=== PATIENT | female | born 1945 | race Caucasian/White ===

== ENCOUNTER 2019-08-17 07:05 | Day surgery (SDC) | payer MEDICARE, OTHER ==
[~2019-08-17] VITALS: Ht 160 cm; Wt 99.8 kg
[~2019-08-17 07:05] MED LIST: CELEXA20 MG PO; HYZAAR 100-251 EACH PO
[2019-08-17] MEDS ORDERED: COZAAR50 MG PO (07:26)
--- NOTE | 2019-08-18 22:00 | OR ---
[facility] [address], [place] [address] Signed DATE OF OPERATION: 08/17/2019 SURGEON: Santo Conroy MD PREOPERATIVE DIAGNOSES: Positive Cologuard test, no clinical symptoms, negative family history of colon cancer. POSTOPERATIVE DIAGNOSES: 1. Diverticulosis, extensive sigmoid and left colon. 2. Polyps x3. PROCEDURE: Total colonoscopy to cecum with cold snare polypectomy x3. ANESTHESIA: Intravenous sedation fentanyl 100 mcg, Versed 7 mg. INDICATION: This 74-year-old white woman is a patient of Dr. Zuniga and has undergone a Cologuard test on June 19, 2019, which was positive. She has no symptoms of bleeding diarrhea or constipation, and no family history of colon cancer. She is admitted at this time to undergo colonoscopy on the basis of the Cologuard test. She understands the risks of bleeding, infection, and perforation. FINDINGS: The prep was excellent. Complete colonoscopy was undertaken to the cecum without question. She had numerous diverticula of the sigmoid and left colon. There were 3 polyps of the left colon in aggregate that were all excised with cold snare technique without problem. None appeared worrisome for malignancy. DESCRIPTION OF PROCEDURE: The patient was brought to the endoscopy suite and placed in lateral decubitus position. Given intravenous sedation to the point of slurred speech and nystagmus. Digital rectal examination was normal. An Olympus video colonoscope was passed in the rectum and manipulated throughout the colon noting diverticular change of the sigmoid and left colon. Scope was ultimately advanced to the cecum, which was well identified. Irrigation was undertaken identifying the ileocecal valve and appendiceal orifice. The scope was withdrawn from that point and examination throughout showed no sign of abnormality until approximately 50 cm from Electronically Signed By: SANTO CONROY MD 08/18/19 2200 PATIENT NAME: SANDRITA MUÑOZ OPERATIVE REPORT DATE OF : 49 REPORT #: [id number] PHYSICIAN: SANTO CONROY MD PCP: FEDERICO ZUNIGA MD REPORT IS CONFIDENTIAL AND NOT TO BE RELEASED WITHOUT AUTHORIZATION [facility] [address], [place] [address] Signed the anal verge where a small polyp was noted. Narrow band imaging confirmed this as well. This was excised with cold snare technique and an additional excision with morcellation technique. Specimen was passed for pathology. Scope was withdrawn and another similar such polyp was noted at 35 cm, that too was similarly excised and retrieved. Ultimately, a small polyp of a similar nature was noted at 25 cm and excised completely with cold snare technique. Careful withdrawal of scope and retroflexed view in the rectum showed no sign of other abnormality. The scope was removed. The patient was taken to the recovery room in good condition. CONCLUDING DIAGNOSIS: Three small polyps in left colon, none of them worrisome for cancer, all of them probable adenomas. PLAN: Recommend repeat colonoscopy in 3 years sooner if clinically indicated. Recommend high-fiber diet as well based on the diverticular disease. MD TERE Garcia/RICA /[id number] cc: Federico Zuniga MD Copies: FEDERICO ZUNIGA MD ~ Electronically Signed By: SANTO CONROY MD 08/18/192199 PATIENT NAME: [facility] OPERATIVE REPORT DATE OF : 49 REPORT #: [id number] PHYSICIAN: SANTO CONROY MD PCP: FEDERICO ZUNIGA MD REPORT IS CONFIDENTIAL AND NOT TO BE RELEASED WITHOUT AUTHORIZATION
== END 2019-08-17 11:20 | disposition home or self-care (01) ==
LOC: OPS 07:05 → DS 07:05 → OPS 08:00 → DS 08:30 → OPS 11:20
PROVIDERS: Surgery
PROC: 0DBE8ZZ Excision of Large Intestine, Via Natural or Artificial Opening Endoscopic (ICD-10-PCS; principal; 2019-08-17 08:00)
DX: D12.6 Benign neoplasm of colon, unspecified (principal); K57.30 Diverticulosis of large intestine without perforation or abscess without bleeding; I10 Essential (primary) hypertension; J44.9 Chronic obstructive pulmonary disease, unspecified; Z88.5 Allergy status to narcotic agent; Z88.1 Allergy status to other antibiotic agents; Z88.8 Allergy status to other drugs, medicaments and biological substances; Z88.2 Allergy status to sulfonamides; Z79.899 Other long term (current) drug therapy
CPT/HCPCS: 88305; 99153; G0500; J0690; J1200; J2250; J3010; J7121